=== PATIENT | female | born 1950 | race Caucasian/White ===

== ENCOUNTER 2016-07-12 16:19 | Emergency (ER) | payer MEDICARE, OTHER ==
[2016-07-12] MEDS ORDERED: IOPAMIDOL 370 (76%) 100 ML VIAL IV ONE (16:20)
[2016-07-12 17:58] LABS: ABSOLUTE NEUTROPHIL COUNT 5.2 K/mm3 (1.8-7.7); BASO % 0.3 % (0.2-1.0); EOS % 0.3 % (0.9-2.9); HEMATOCRIT 41.8 % (37.0-47.0); HEMOGLOBIN 14.2 gm/l (12.0-16.0); IMM NEUT% 0.4 % (0-1); LYMPH # 1.2 (1.0-4.8); LYMPH % 16.8 % (15-45); MEAN CELL VOLUME 90.9 fl (81.0-99.0); MEAN CORPUSCULAR HEMOGLOBIN 30.9 pg (27.0-31.0); MEAN PLATELET VOLUME 9.2 fl (7.4-10.4); MONO # 0.5 (0.0-0.8); NEUT % 75.2 % (43-75); PLATELET COUNT 381 K/mm3 (130-400); RED CELL DISTRIBUTION WIDTH 12.6 % (11.5-14.5)
[2016-07-12 18:20] LABS: ALBUMIN 4.5 gm/dL (3.5-5.7); CALCIUM 9.1 mg/dL (8.6-10.3)
[2016-07-12] MEDS ORDERED: LACTATED RINGERS 1,000 ML ONE (19:18)
--- NOTE | 2016-07-12 19:20 | CT ---
INTRACRANIAL CTA WITH CONTRAST HEAD CT WITHOUT CONTRAST HISTORY: Right-sided headache, previous intracranial hemorrhage. Prior to and following administration of 80 cc Isovue 370 intravenous contrast contiguous axial images acquired from skull base to vertex. COMPARISON: 07/06/2013 BRAIN VOLUME:Multifocal gliosis and malacic change, correlate for prior infarcts at the right insula, right parasylvian region, right frontal pole, and right frontoparietal region. VENTRICULAR SIZE:No gross ventriculomegaly. FOCAL MASS EFFECT:None. ACUTE INTRACRANIAL HEMORRHAGE:None. POSTPROCEDURAL CHANGE: Correlate for prior anterior cerebral artery embolization. WHITE MATTER: Periventricular hypoattenuation, increased at the right frontal aspect. CALVARIUM: Defect at right-sided aspects of the right frontal bone which may relate to prior ventriculostomy. VISIBLE PARANASAL SINUSES AND MASTOID AIR CELLS:Grossly clear. POSTERIOR CIRCULATION: No high-grade stenosis or occlusion noted. Tortuous left P1 segment. ANTERIOR CIRCULATION: No high-grade stenosis or occlusion noted. POST CONTRAST IMAGING: No dominant focal enhancing lesion identified. SACCULAR ANEURYSM: Evidence of prior coil embolization. No dominant saccular aneurysm Identified. IMPRESSION: 1. Multifocal right-sided gliosis and malacic change, correlate for history of prior right anterior cerebral and middle cerebral artery distribution infarcts. 2. No mass effect or acute intracranial hemorrhage. 3. Evidence of prior anterior cerebral artery coil embolization, no obvious recurrent saccular aneurysm identified. No abnormally enhancing brain lesion. Results were electronically transmitted to the electronic medical record at 07/12/2016 at 1916 hours.
--- NOTE | 2016-07-12 19:26 | CT ---
NECK CTA HISTORY: Right-sided headache, prior intracranial hemorrhage.. Following the administration of 80 cc of Isovue 370 contiguous axial images were acquired from the level of the joseline to the level of the third ventricle. Diameter stenosis was calculated utilizing NASCET criteria. AORTIC ARCH: Unremarkable. Normal caliber.. 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 INNOMINATE AND SUBCLAVIAN ARTERIES: No high-grade stenosis or occlusion.. VERTEBRAL ARTERIES: No high-grade stenosis or occlusion.. COMMON CAROTID ARTERIES: No high-grade stenosis or occlusion. INTERNAL CAROTID ARTERIES: Minor soft plaque deposition at the proximal right internal carotid artery without significant stenosis by NASCET criteria. SOFT TISSUES: No gross adenopathy or mass lesion noted.. OSSEOUS STRUCTURES: Changes of cervical spondylosis with disc degeneration at the C3-4 and C5-6 levels. Findings of temporomandibular joint degeneration. LUNG APICES: Apical fibrotic changes. IMPRESSION: 1. No high-grade stenosis or occlusion of the vertebral, common carotid, or internal carotid arteries. 2. 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 3. Findings a cervical spondylosis and temporomandibular joint degeneration. Results were electronically transmitted to the electronic medical record at 07/12/2016 at 1922 hours.
[2016-07-12 19:35] LABS: SPECIFIC GRAVITY 1.015 (1.001-1.030); URINE BILIRUBIN NEGATIVE (NEGATIVE); URINE BLOOD 1+ (NEGATIVE); URINE GLUCOSE (UA) NEGATIVE (NEGATIVE); URINE LEUKOCYTE ESTERASE NEGATIVE (NEGATIVE); URINE NITRITE NEGATIVE (NEGATIVE); URINE PROTEIN NEGATIVE (NEGATIVE); URINE UROBILINOGEN NORMAL (0-1 mg/dl)
[2016-07-12 19:40] LABS: URINE APPEARANCE CLEAR; URINE COLOR STRAW
[2016-07-12 20:07] LABS: URINE AMORPHOUS SEDIMENT FEW; URINE BACTERIA RARE; URINE EPITHELIAL CELLS 0 /hpf; URINE RBC 0-2 /hpf; URINE WBC 0-2 /hpf
[2016-07-12] MEDS ORDERED: DIPHENHYDRAMINE HCL 50 MG/1 ML VIAL ONE (20:22)
[2016-07-12] MEDS ORDERED: METOCLOPRAMIDE HCL 5 MG/ML 2ML VIAL ONE (20:22)
[2016-07-12] MEDS ORDERED: KETOROLAC TROMETHAMINE 15 MG/ML VIAL ONE (20:22)
[2016-07-12] MEDS ORDERED: ONDANSETRON 4 MG/2ML 2 ML VIAL ONE (20:29)
== END 2016-07-12 21:33 | disposition home or self-care (01) ==
LOC: ED 16:19
DX: R11.0 Nausea (principal); R51 Headache; Z86.73 Personal history of transient ischemic attack (TIA), and cerebral infarction without residual deficits
CPT/HCPCS: 85025; 80053; 83735; 84484; 81001; 70450; 70496; 70498; 96375; 99284 ×2; 96374; 96361 ×2; J1200; J2765; J1885; J2405; J7120; Q9967

== ENCOUNTER 2016-08-17 21:54 | Emergency (ER) | payer MEDICARE, OTHER ==
[2016-08-17] MEDS ORDERED: OXYCODONE/ACETAMINOPHEN 5/325 MG TABLET ONE (22:29)
--- NOTE | 2016-08-18 08:19 | RAD ---
Name: BERTHA MIKE Exam: Left forearm Comparison: None Clinical history: Trauma. Left forearm pain. Initial encounter. Findings: 2 views left forearm are submitted. Bone density is within normal limits. There is a very comminuted impacted angulated intra-articular fracture of the distal left radius. There is a comminuted impacted and angulated intra-articular fracture of the distal left ulna as well. There is an old ulnar styloid fracture. There is degenerative disease within the lateral carpus. Soft tissue swelling at the wrist is present. There is degenerative disease at the elbow. Impression: Very comminuted displaced impacted angulated intra-articular fractures of the distal left radius and ulna.
== END 2016-08-17 23:52 | disposition home or self-care (01) ==
LOC: ED 21:54
DX: S52.92XA Unspecified fracture of left forearm, initial encounter for closed fracture (principal); S52.202A Unspecified fracture of shaft of left ulna, initial encounter for closed fracture; W18.30XA Fall on same level, unspecified, initial encounter; Y93.01 Activity, walking, marching and hiking; Y92.481 Parking lot as the place of occurrence of the external cause; I69.354 Hemiplegia and hemiparesis following cerebral infarction affecting left non-dominant side; J45.909 Unspecified asthma, uncomplicated; G40.209 Localization-related (focal) (partial) symptomatic epilepsy and epileptic syndromes with complex partial seizures, not intractable, without status epilepticus; Z79.899 Other long term (current) drug therapy; Z88.5 Allergy status to narcotic agent; Z88.0 Allergy status to penicillin
CPT/HCPCS: 73090; 99284 ×2; 29105; A9270

== ENCOUNTER 2016-08-23 09:37 | Day surgery (SDC) | payer MEDICARE, OTHER ==
--- NOTE | 2016-08-21 11:54 | HP ---
Pat MIKE : 1950 V DATE OF SERVICE: August 21, 2016 HISTORY OF PRESENT ILLNESS: A right-hand dominant female who sustained an injury on August 17, 2016 in a fall injuring her left wrist. She was seen at [facility] where she was placed into a splint. She is here today for follow up. On presentation today she complains of 9/10 pain. She did not previously have any complaints of pain at this site. She has been taking Percocet for it. She has no other extremity complaints. She does note that she has some decreased sensation in this and although she has a history of decreased sensation secondary to a hemorrhagic stroke in 2012. She has no other complaints at this time. PAST MEDICAL AND SURGICAL HISTORY: Significant for this hemorrhagic stroke as well as other issues as indicated on her intake form. REVIEW OF SYSTEMS: No recent constitutional symptoms to include fevers and chills. No recent cardiovascular symptoms to include chest pain or palpitations. No recent respiratory symptoms to include shortness of breath or recent infections. PHYSICAL EXAM: Patient is a well-developed, well-nourished female in no acute distress. They are awake, alert and conversant throughout the encounter. CARDIOVASCULAR: Intact peripheral pulses on bilateral upper extremities. No significant edema on inspection of bilateral upper extremities. NEUROLOGIC: Patient had intact coordinated composite motion of the bilateral upper extremities and sensation intact to light touch in all distributions of bilateral upper extremities. PSYCHIATRIC: Patient was oriented to person, place and time and displayed appropriate mood and affect during the encounter. SKIN: Exam of the skin on bilateral upper extremities showed no significant scars, lesions, rashes or masses. FOCUSED MUSCULOSKELETAL EXAM: The left wrist shows significant ecchymosis, swelling and tenderness to palpation. Motion is limited secondary to pain. She has intact sensation in the hand except some decreased sensation in the pads of her fingers across all digits. She does have a warm and well perfused and with brisk capillary refill. She has got full motion at her elbow. Strength is not tested secondary to her fractures. RADIOGRAPHS: A review of x-ray shows comminuted fracture of the distal radius with intra-articular extension, dorsal comminution and dorsal angulation. She also has a simple fracture of the distal ulna at the same level. ASSESSMENT: This is a 65-year-old female with a left distal radius and ulna fractures. PLAN: Open reduction internal fixation. Risks, benefits and alternatives were discussed with the patient and she elected to proceed with surgery. Informed consent was obtained and documented in the chart. The patient was placed on the schedule the next available convenience. Job [id number] STAT Cc: [facility]
[~2016-08-23 09:37] MED LIST: CLINDAMYCIN 600 MG PREMIX 50 ML IV PRN; DEXAMETHASONE SOD PHOS 4 MG/1 ML VIAL ONE; FENTANYL 5 ML ONE; KETOROLAC TROMETHAMINE 30 MG/ML 1 ML VIAL ONE; LIDOCAINE 2% (PRES FREE) 5 ML VIAL ONE; MIDAZOLAM HCL 5 MG/5 ML VIAL ONE; NERVE BLOCK PROCEDURAL TRAY 1 EACH ONE; ONDANSETRON 4 MG/2ML 2 ML VIAL ONE; PROPOFOL 20 ML IV ONE; ROPIVACAINE 0.5% 30 ML VIAL ONE
[2016-08-23] MEDS ORDERED: LACTATED RINGERS 1,000 ML ONE (10:00)
[2016-08-23] MEDS ORDERED: IV START KIT ONE (10:00)
[2016-08-23] MEDS ORDERED: CLINDAMYCIN 600 MG PREMIX 50 ML IV ONE (10:03)
[2016-08-23] MEDS ORDERED: KETAMINE HCL UD SYRINGE 100 MG/2 ML IV ONE (12:03)
--- NOTE | 2016-08-23 13:40 | PCMBPN ---
Brief Post Op Note: Date of Procedure: 08/23/16 Start Time: 1200 Preoperative Diagnosis: 1. left distal radius and ulna fracture Postoperative Diagnosis: 1. Same Procedure: left distal radius open reduction and external fixator application Surgeon: Freddy Rocha MD Assist: Yas Hewitt Anesthesia: Merly Basurto Findings: as above Condition: stable to PACU Complications: degree of comminution did not allow for internal fixation, intraoperative decision was made to utilize external fixator IV Fluids: 1300 mLs of LR Urine Output: 0 mLs Estimated Blood Loss: 25 mLs Tourniquet Time: 51 min at 250 mm Hg Specimens: none Implants: Manuel Wristjack Drains: none Freddy Rocha MD
--- NOTE | 2016-08-23 13:52 | RAD ---
INTRAOPERATIVE FLUOROSCOPY HISTORY: Fracture repair with external fixation device. TECHNIQUE: 7 seconds of fluoroscopy time was provided for Dr. Rocha for purposes of procedural guidance. 2 fluoroscopic spot images of the left wrist were submitted for review. FINDINGS: Redemonstration of comminuted left-sided ulnar and radial fractures, alignment improved and now near-anatomic. Portions of an external fixation screw are seen. IMPRESSION: Fluoroscopy provided for procedural guidance, for external fixator placement.
[2016-08-23] MEDS ORDERED: ONDANSETRON 4 MG/2ML 2 ML VIAL IV PRN (13:53)
[2016-08-23] MEDS ORDERED: DIPHENHYDRAMINE HCL 50 MG/1 ML VIAL IV PRN (13:53)
[2016-08-23] MEDS ORDERED: OXYCODONE/ACETAMINOPHEN 5/325 MG TABLET PO PRN (13:53)
[2016-08-23] MEDS ORDERED: ACETAMINOPHEN 325 MG TABLET PO PRN (13:53)
[2016-08-23] MEDS ORDERED: HYDROMORPHONE HCL 1 MG/ML SYRINGE IV PRN (13:53)
[2016-08-23] MEDS ORDERED: LACTATED RINGERS 1,000 ML IV SCH (13:53)
--- NOTE | 2016-08-24 09:41 | OP ---
Pat MIKE : 1950 [id number] DATE OF SERVICE: August 23, 2014 PREOPERATIVE DIAGNOSIS: Left distal radius and ulna fracture. POSTOPERATIVE DIAGNOSIS: Left distal radius and ulna fracture. PROCEDURE PERFORMED: LEFT DISTAL RADIUS OPEN REDUCTION AND EXTERNAL FIXATOR APPLICATION. SURGEON: Freddy Rocha M.D. HAND DEVELOPER: Yas Hewitt M.D. ANESTHESIA: Marixa CorralesNKatarina. SPECIMENS: No material was sent to the laboratory. ESTIMATED BLOOD LOSS: 25 mL FLUIDS REPLACED: 1,300 mL of crystalloid. TOURNIQUET TIME: 51 minutes at 250 mmHg. DRAINS: None. IMPLANTS: AG wrist masood. COMPLICATIONS: No intraoperative complications. INDICATIONS: This is a 65-year-old right-hand dominant female who sustained a fall, and injury to her left wrist. She was seen in the emergency department where she was immobilized and sent to orthopedics for follow up. On presentation to orthopedics she continued deformity with significant bruising, and ecchymosis about her left wrist. X-rays demonstrated a comminuted left distal radius fracture with a concomitant distal ulna fracture. The risks, benefits and alternatives of surgical reduction and fixation were discussed with the patient and she elected to proceed. Informed consent was obtained and documented in the chart. The patient was placed on the schedule of the first available convenience. DESCRIPTION OF PROCEDURE: The patient was identified in the pre-operative holding area where she was marked with an indelible marker by the operating surgeon. She underwent a regional block by the anesthesia providers and that was taken to the operating room where she was placed in a supine position on the operating room table. A well padded pre-calibrated nonsterile tourniquet was placed on her left upper arm. She received perioperative antibiotics and mild sedation. She was prepped and draped in the usual sterile fashion for surgery. An operative time out was performed and confirmed by all members of the operative team. A longitudinal incision was made over the volar surface of the patient and the following an FCR approach to the distal radius. Dissection was carried down to the distal radius. At this point it became clear that there was extensive comminution which had not been appreciated preoperatively, which precluded a good fixation of the distal row of the locking screws that would be required for open reduction internal fixation using a volar plate. After several reduction attempts were made and it became clear that there was just inadequate bone stalk distally, the decision was made to transition to external fixation to immobilize the wrist and allow the extensive comminution to consolidate. The operative incision was copiously irrigated with sterile saline and closed in layers and then the AG wrist masood kit was opened and brought onto the field. Under fluoroscopic guidance the two metacarpal pins were placed through stab incisions and spreading of the tissue to avoid compromising the neurovascular bundles. Similarly the radial pins were placed under fluoroscopic visualization. With these in place the AG wrist masood was assembled and the adjustments were made resulting in a satisfactory overall alignment of the distal radius and ulna. At this point all of the adjustments were locked in place and a sterile dressing of Xeroform, and fluffs in each of the pin sites was applied. Xeroform was applied to the open incision and the hand was wrapped with an KAILEE bandage. The tourniquet was deflated, the drapes were removed. The patient was transferred to a stretcher and taken postoperatively to the postanesthesia care unit in stable condition. There were no observed intraoperative complications during this procedure. Job [id number] Cc: [facility]
== END 2016-08-23 15:05 | disposition home or self-care (01) ==
LOC: SDC 09:37
PROVIDERS: ATTEND Orthopaedic Surgery
PROC: 0PSJ05Z Reposition Left Radius with External Fixation Device, Open Approach (ICD-10-PCS; principal; 2016-08-23)
DX: S52.502A Unspecified fracture of the lower end of left radius, initial encounter for closed fracture (principal); S52.202A Unspecified fracture of shaft of left ulna, initial encounter for closed fracture; J45.909 Unspecified asthma, uncomplicated; F41.9 Anxiety disorder, unspecified; Z86.73 Personal history of transient ischemic attack (TIA), and cerebral infarction without residual deficits; W19.XXXA Unspecified fall, initial encounter; Y92.9 Unspecified place or not applicable